=== PATIENT | male | born 1995 | race Caucasian/White ===

== ENCOUNTER 2019-11-20 21:18 | Emergency (ER) | payer BC, OTHER ==
[~2019-11-20] VITALS: Ht 190.5 cm; Wt 95.3 kg
[2019-11-20] MEDS ORDERED: VENTOLIN HFA 1818 GM INH (22:24)
[2019-11-20] MEDS ORDERED: NAPROSYN500 MG PO (22:25)
[2019-11-20 23:17] VITALS: BP 123/84
--- NOTE | 2019-11-21 10:20 | EKG ---
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
== END 2019-11-20 23:20 | disposition home or self-care (01) ==
LOC: EDBD 21:18 → ER 21:18
DX: R07.89 Other chest pain (principal); R06.02 Shortness of breath; F17.210 Nicotine dependence, cigarettes, uncomplicated